=== PATIENT | male | born 1930 | race Caucasian/White ===

== ENCOUNTER 2017-08-13 20:55 | Emergency (ER) | payer OTHER ==
--- NOTE | 2017-08-13 20:59 | PDOC ---
History of Present Illness - History of Present Illness Initial Comments: 08/13/17 21:51 87 year old male,with significant past medical history of dementia, HTN, HLD, who was BIBA from the [facility] agitated s/p unwitnessed slip and fall in his home bathroom. Upon arrival to the emergency room, he had been incontinent with feces down his legs. The patients daughter states that the patient was diagnosed with dementia 2 weeks ago, but is usually mellow and calm at baseline. HPI is limited secondary to dementia. PAST MEDICAL HISTORY: dementia, HTN, HLD PAST SURGICAL HISTORY: prostate cancer (1990s s/p prostatectomy) FAMILY HISTORY: no pertinent history SOCIAL HISTORY: Pt lives at [facility] with a home health aid during the day MEDICATIONS: reviewed ALLERGIES: As per nursing notes Review of Systems - limited secondary to dementia Physical Exam General: Well-nourished well-developed individual HEENT: Throat: Normal, tonsils normal, no erythema or exudate Neck: Supple, no meningeal signs, no lymphadenopathy Eyes::Pupils equal reactive and round, extraocular motion intact Chest: Nontender to palpation Cardiac: S1-S2 normal, regular rate and rhythm, no murmurs rubs or gallops Respiratory: Lungs clear to auscultation bilateral Abdomen: Soft, nondistended, normal bowel sounds, nontender to palpation diffusely Extremities: 1+ nonpitting edema of the bilateral lower extremities. Warm, dry, no cyanosis, clubbing. Skin: +Abrasion on the upper lip, no active bleeding. No rashes Neuro: Alert and oriented x3, nonfocal exam, grossly intact, normal gait <Kassy Michaels - Last Filed: 08/13/17 21:52> - General History Source: Family, Senior Living Records Exam Limitations: Dementia, Other - History of Present Illness Initial Comments: A portion of this note was documented by scribe services under my direction. I have reviewed the details of the note, within reason, and agree with the documentation. The case summary and management plan written by me. Medical decision making: This is an 87-year-old male who comes in from his independent living facility via EMS. Patient fell in the shower. On arrival here patient was initially, but then became very agitated and combative and attempted to hit and kick staff. In addition to that it was noted the patient was incontinent of urine with diarrhea extending down to his feet. Shortly after arrival in the emergency room patient's daughter arrived and as soon as she saw his daughter he calm down and became cooperative Workup done including CBC, comp, UA, head CT, EKG and chest x-ray Patient's workup was unremarkable with the exception of some chronic renal failure. 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 Patient remained calm and cooperative in the emergency room. Patient's daughter at patient's bedside and patient's daughter will take patient back to his independent living facility and stay with him tonight and arrange with the facility for additional caregivers to monitor him especially during the nighttime hours. <Summer Villegas I - Last Filed: 08/14/17 19:30> - General Chief Complaint: Altered Mental Status Stated Complaint: SLIPPED IN SHOWER, DENIES PAIN ACTING IRRATIONALLY Time Seen by Provider: 08/13/17 20:58 Past History <Kassy Michaels - Last Filed: 08/13/17 21:52> - Past Medical History Anemia: No Asthma: No Cancer: Yes (BASAL CELL BRIDGE NOSE,PROSTATE ) Cardiac Disorders: No CVA: No COPD: No CHF: No Dementia: No Diabetes: No GI Disorders: No Disorders: Yes (CA PROSTATE RADICAL PROSTATECTOMY) HTN: Yes Hypercholesterolemia: Yes Liver Disease: No Seizures: No Thyroid Disease: No - Surgical History Abdominal Surgery: No Appendectomy: No Cardiac Surgery: No Cholecystectomy: Yes (1999) Lung Surgery: No Neurologic Surgery: No Orthopedic Surgery: No - Suicide/Smoking/Psychosocial Hx Smoking History: Never smoked Hx Alcohol Use: Yes (SOCIALLY) Drug/Substance Use Hx: No Substance Use Type: Alcohol Hx Substance Use Treatment: No <Summer Villegas I - Last Filed: 08/14/17 19:30> - Past Medical History Allergies/Adverse Reactions: Allergies Allergy/AdvReac Type Severity Reaction Status Date / Time No Known Drug Allergies Allergy Verified 08/13/17 21:52 Home Medications: Ambulatory Orders Aspirin [ASA -] 81 mg PO DAILY 08/13/17 Lisinopril 10 mg PO DAILY 08/13/17 Simvastatin 20 mg PO DAILY 08/13/17 ED Treatment Course - LABORATORY CBC & Chemistry Diagram: 08/13/17 21:30 08/13/17 21:30 - ADDITIONAL ORDERS Additional order review: Laboratory Results 08/13/17 21:30 Urine Color Yellow Urine Appearance Clear Urine pH 5.0 Ur Specific Freeman 1.015 Urine Protein 1+ H Urine Glucose (UA) Negative Urine Ketones 1+ H Urine Blood Negative Urine Nitrite Negative Urine Bilirubin Negative Urine Urobilinogen 1.0 Ur Leukocyte Esterase Negative <Kassy Michaels - Last Filed: 08/13/17 21:52> - LABORATORY CBC & Chemistry Diagram: 08/13/17 21:30 08/13/17 21:30 <Summer Villegas I - Last Filed: 08/14/17 19:30> *DC/Admit/Observation/Transfer - Attestations Scribe Attestion: 08/13/17 21:52 Documentation prepared by DULCE MARIA Field, acting as medical dermatologist for Summer Villegas MD. <Kassy Michaels - Last Filed: 08/13/17 21:52> - Discharge Dispostion Admit: No <Summer Villegas I - Last Filed: 08/14/17 19:30> Diagnosis at time of Disposition: Fall Qualifiers: Encounter type: initial encounter Qualified Code(s): W19.XXXA - Unspecified fall, initial encounter Dementia Qualifiers: Dementia type: unspecified type Dementia behavioral disturbance: with behavioral disturbance Qualified Code(s): F03.91 - Unspecified dementia with behavioral disturbance - Discharge Dispostion Disposition: HOME Condition at time of disposition: Stable - Patient Instructions Additional Instructions: It appears that 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 It is, and that with this type of dementia that after the son goes down they become confused and agitated. So it is important that he have someone with him in the overnight hours as tonight he most likely did become confused and that is what precipitated his fall and his visit to the emergency room tonight. Follow-up with the facility where he lives as well as the organization that is providing his assistance during the day and have him evaluated for additional assistance especially during the nighttime hours. Return to the emergency department immediately with ANY new, persistent or worsening symptoms. Continue any medications as previously prescribed by your physician. You should follow up with your primary doctor as soon as possible regarding today's emergency department visit. . Please make sure your doctor reviews the results of your emergency evaluation. Thank you for coming to the Emergency Department today for your care. It was a pleasure to see you today. Please note that your evaluation is INCOMPLETE until you follow-up with your doctor.
[2017-08-13 21:41] LABS: URINE APPEARANCE Clear; URINE BILIRUBIN Negative (NEGATIVE); URINE BLOOD Negative (NEGATIVE); URINE COLOR YELLOW; URINE GLUCOSE (UA) Negative (NEGATIVE); URINE KETONE 1+ (NEGATIVE); URINE LEUK ESTERASE Negative (NEGATIVE); URINE NITRITE Negative (NEGATIVE); URINE PROTEIN 1+ (NEGATIVE)
[2017-08-13 21:48] LABS: BASOPHIL 0.5 % (0-2.0); EOSINOPHIL 2.1 % (0-4.5); MCH 33.2 pg (25.7-33.7); MCHC 34.7 g/dl (32.0-35.9); MEAN CELL VOLUME 95.7 fl (80-96); MEAN PLT VOLUME 8.6 fl (7.5-11.1); NEUTROPHILS 76.1 % (42.8-82.8); PLATELET COUNT 218 K/MM3 (134-434); RDW 13.5 % (11.9-15.9); WHITE BLOOD COUNT 7.5 K/mm3 (4.0-10.8)
[2017-08-13 21:58] LABS: ALBUMIN 3.4 g/dl (3.5-5.0); ALK PHOS 52 U/L (32-92); ANION GAP 6 (8-16); BILIRUBIN,TOTAL 0.3 mg/dl (0.2-1.0); CALCIUM 8.6 mg/dl (8.4-10.2); CO2 25 mmol/L (22-28); CREATININE 1.7 mg/dl (0.6-1.3); GLUCOSE,RANDOM 123 mg/dl (74-106); SGOT/AST 17 U/L (10-42); SGPT/ALT 13 U/L (10-40); TOT PROT 5.7 g/dl (6.4-8.3)
[2017-08-13 22:08] LABS: URINE BACTERIA FEW /hpf (NEGATIVE); URINE RBC 0-2 /hpf (0-3); URINE WBC 0-1 (0-2)
[2017-08-13 22:13] LABS: TROPONIN I (DFP) 0.03 ng/ml (0.03-0.50)
[2017-08-13 22:15] VITALS: BP 117/47; PULSE 66; TEMP 98.1; BMI 22.6
--- NOTE | 2017-08-14 15:53 | EKG ---
Test Reason : Blood Pressure : / mmHG Vent. Rate : 065 BPM Atrial Rate : 065 BPM P-R Int : 176 ms QRS Dur : 130 ms QT Int : 442 ms P-R-T Axes : 061 -70 109 degrees QTc Int : 459 ms NORMAL SINUS RHYTHM BASELINE ARTIFACT POSSIBLE LEFT ATRIAL ENLARGEMENT LEFT AXIS DEVIATION LEFT BUNDLE BRANCH BLOCK ABNORMAL ECG NO PREVIOUS ECGS AVAILABLE REPEAT EKG IF CLINICALLY INDICATED Confirmed by TAZ SUMNER MD ([id number]) on 08/14/2017 3:53:21 PM Referred By: SATINDER Confirmed By:TAZ SUMNER MD
== END 2017-08-13 23:28 | disposition home or self-care (01) ==
LOC: FER 20:55
DX: F03.91 Unspecified dementia, unspecified severity, with behavioral disturbance (principal); W18.39XA Other fall on same level, initial encounter; Y93.E1 Activity, personal bathing and showering; Y92.002 Bathroom of unspecified non-institutional (private) residence as the place of occurrence of the external cause; I10 Essential (primary) hypertension; E78.5 Hyperlipidemia, unspecified; Z85.46 Personal history of malignant neoplasm of prostate
CPT/HCPCS: 36415; 70450-TC; 71010-TC; 80053; 81003; 81015; 82550; 84484; 85025; 93005; 99282-25